=== PATIENT | female | born 1980 | race Caucasian/White ===

== ENCOUNTER 2017-04-06 07:30 | Day surgery (SDC) | payer OTHER ==
--- NOTE | ~2017-04-06 | OP ---
Record Of Operation [facility] [address] [place]. [address] NAME: MAY SANCHEZ : 84 STATUS : [facility]#: [id number] AGE: 36 ADM/REG DATE : 04/06/17 MR#: [id number] REPORT SERV DATE: 04/07/17 DICTATED BY: Guerrero ODONNELL DATE: 04/07/17 REPORT STATUS : Draft TRANSCRIBED BY: RAMY DATE: 04/07/17 DATE OF PROCEDURE: 04/06/2017 PREOPERATIVE DIAGNOSIS: Basal cell carcinoma of the right lateral forehead. POSTOPERATIVE DIAGNOSIS: Basal cell carcinoma of the right lateral forehead. NAME OF OPERATION: 1. Wide excision of right lateral forehead basal cell carcinoma with frozen section. 2. Surgical excisional preparation of right lateral forehead defect. 3. Reconstruction of right lateral forehead defect with forehead-scalp rotation flaps. FINDINGS: A 12 mm diameter excision required to remove the basal cell carcinoma including margins, right lateral forehead near hairline. INDICATIONS: This 36-year-old lady has a biopsy-proven basal cell carcinoma, and now presents for excision and reconstruction. This basal cells on the right lateral forehead near the hairline. She has a very tight forehead and lack of wrinkles. I discussed at length with her in consultation in the office the pros and cons, alternatives, benefits, risks, limitations, and complications associated with excision and reconstruction. We discussed complications of scarring, reaction to suture, infection, distortion of the associated structures such as the eyebrow, recurrence of tumor, reaction to sutures, imponderables. She has very tight forehead and disposes some challenges. She understands and wishes to proceed. No guarantees expressed. Proper consent was obtained. DESCRIPTION OF PROCEDURE: She was taken into the operating room and given general oral endotracheal anesthesia in the supine position. Her hair was taped out of the way and her entire face, and the adjacent scalp on the right, as well as her right ear were prepped with Hibiclens and saline, followed by isopropyl alcohol. None of these solutions got in her eyes. None of the solutions got down in her ear canal. Sterile drapes were applied. The lesion on her forehead was marked out and then a margin of safety was marked out around this measuring a total of 12 mm in diameter for excision. The area was injected very sparingly with 0.5% Marcaine with 1:200,000 epinephrine and 1% Xylocaine with 1:100,000 epinephrine. This was a small amount of injection, so that the fluid would not impair the movement of the forehead and scalp during reconstruction. The 12, 3, 6, and 9 o'clock positions were also marked. The #15 blade was used to incise according to the markings including the margins. Before the tumor was removed from the tumor bed with its margins, a long suture was placed at 12 o'clock and a short suture was placed at 6 o'clock. The tumor was then removed and in the level down through the galea in the subgaleal plane. The specimen was given to the pathologist to perform frozen sections. Frozen sections showed basal cell carcinoma with margins free. Next, the forehead was tight and a slow and tedious flap elevation of the forehead was first performed with the guarded cautery tip in the subgaleal plane extending this all way to the right para midline area of the forehead. This was approximately 4 cm x 5 cm flap elevation. This flap was then Record Of Operation [address] [address] NAME: MAY SANCHEZ : 84 STATUS : [facility]#: [id number] AGE: 36 ADM/REG DATE : 04/06/17 MR#: [id number] REPORT SERV DATE: 04/07/17 DICTATED BY: Guerrero ODONNELL DATE: 04/07/17 REPORT STATUS : Draft TRANSCRIBED BY: RAMY DATE: 04/07/17 rotated and the defect could not be closed. Next, a scalp flap was elevated over the deep temporal fascia and in the subgaleal plane, with the guarded tip cautery for hemostasis and flap elevation. This flap measured 4 cm tall x 6 cm wide (going posterior). Hemostasis was excellent. At this point, the forehead flap and the scalp flap rotated on themselves while watching the eyebrow for symmetry with the opposite left eyebrow. Four sutures of 4-0 Vicryl were placed, but not tied, and then they were tied sequentially while the flaps were held together by my catechist. 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 The direction of the excision was made so it would be in the hairline as best possible. A horizontal closure was not performed for two reasons. The resulting scar would have been more prominent on her forehead without having any wrinkles and her right eyebrow was already higher than the left eyebrow which we had discussed in the office, and I reviewed her photos intraoperatively documenting the higher brow on the right side. Great care was taken to avoid any further brow asymmetry. The wound was cleansed with hydrogen peroxide and dried. Mastisol and paper tape were applied sparingly along the incision line and slightly onto the hair. She was awakened, extubated, and taken to the recovery room in good condition having tolerated the procedure well. Home going instructions included rechecking in the office in eight days. She will keep the tape dry and intact, but if it comes off she will then begin using Q-Tips and peroxide to keep the stitches free of blood. I have given her permission to wash her hair gently starting in two days. SHANNAN/RAMY Guerrero Odonnell M.D. / [id number] CC: Santana Neves M.D.
[~2017-04-06 07:30] MED LIST: YASMIN PO; [UNRECOGNIZED DRUG - OTHER] PO
== END 2017-04-06 15:47 | disposition home or self-care (01) ==
LOC: SDC 07:30
PROVIDERS: Specialist
PROC: 0HX1XZZ Transfer Face Skin, External Approach (ICD-10-PCS; principal; 2017-04-06 08:45)
DX: C44.319 Basal cell carcinoma of skin of other parts of face (principal); D18.01 Hemangioma of skin and subcutaneous tissue
CPT/HCPCS: 84703; 88305; 88331; A9270-GY; J0690; J2250; J2405; J2710; J3010